=== PATIENT | male | born 1965 | race Native Hawaiian/Other Pacific Islander ===

== ENCOUNTER 2022-07-16 14:51 | Emergency (ER) | payer OTHER ==
[~2022-07-16] VITALS: Ht 177.8 cm; Wt 108.9 kg
[2022-07-16 14:58] VITALS: BP 173/104; TEMP 98.7
== END 2022-07-16 16:18 | disposition home or self-care (01) ==
LOC: ED 14:51
DX: M25.462 Effusion, left knee (principal); M25.461 Effusion, right knee; I10 Essential (primary) hypertension; N52.8 Other male erectile dysfunction; F17.210 Nicotine dependence, cigarettes, uncomplicated; X50.3XXA Overexertion from repetitive movements, initial encounter; X50.1XXA Overexertion from prolonged static or awkward postures, initial encounter; Y92.89 Other specified places as the place of occurrence of the external cause
CPT/HCPCS: 99282

== ENCOUNTER 2022-12-03 16:52 | Emergency (ER) | payer OTHER ==
[~2022-12-03] VITALS: Ht 177.8 cm; Wt 108.9 kg
[2022-12-03 17:03] VITALS: TEMP 98.9
[2022-12-03 18:03] LABS: PLATELET COUNT 169 K/uL (142-355)
[2022-12-03 18:12] LABS: PARTIAL THROMBOPLASTIN TIME 29.7 SECONDS (23.9-36.7)
[2022-12-03 18:14] LABS: POTASSIUM 3.3 mmol/L (3.6-5.2)
[2022-12-03 20:45] VITALS: BP 176/98
== END 2022-12-03 20:45 | disposition home or self-care (01) ==
LOC: ED 16:52
PROVIDERS: Family Medicine
DX: E87.6 Hypokalemia (principal); E86.0 Dehydration
CPT/HCPCS: 80053; 80307; 81002; 82550; 84484; 85027; 85379; 85610; 85730; 93005; 99283; J0360

== ENCOUNTER 2022-12-05 07:45 | Emergency (ER) | payer OTHER ==
[~2022-12-05] VITALS: Ht 177.8 cm; Wt 108.4 kg
[2022-12-05 08:16] LABS: PLATELET COUNT 148 K/uL (142-355)
[2022-12-05 08:50] VITALS: BP 131/77; TEMP 98.3
== END 2022-12-05 08:50 | disposition home or self-care (01) ==
LOC: ED 07:45
PROVIDERS: Family Medicine
DX: E86.0 Dehydration (principal); D75.839 Thrombocytosis, unspecified; R19.7 Diarrhea, unspecified; R35.89 Other polyuria; F17.210 Nicotine dependence, cigarettes, uncomplicated
CPT/HCPCS: 80053; 81002; 85027; 99283